=== PATIENT | male | born 1965 | race Caucasian/White ===

== ENCOUNTER 2021-03-20 16:10 | Emergency (ER) | payer BC, OTHER ==
[2021-03-20] MEDS ORDERED: Sodium Chloride 0.9% 10 ML Syringe FLUSH PRN (16:17)
[2021-03-20] MEDS ORDERED: Acetaminophen 500 MG Tab PO ONE (16:57)
[2021-03-20] MEDS ORDERED: Lactated Ringers 1,000 ML IV ONE ×2 (16:57→17:50)
[2021-03-20] MEDS ORDERED: cefTRIAXone 2 GM in Sodium Chloride 0.9% 100 ML IV ONE (16:59)
[2021-03-20 17:26] LABS: CHLORIDE,CL 100 mmol/L (98-107); SODIUM,NA 135 mmol/L (136-145)
[2021-03-20 17:36] LABS: ANION GAP 15.2 meq/L (7-15)
[2021-03-20] MEDS ORDERED: Ciprofloxacin in D5W 400 MG in Premix Bag 1 BAG IV ONE ×2 (17:50)
--- NOTE | 2021-03-20 19:17 | EDM.PDOC ---
ED HPI GENERAL MEDICAL PROBLEM - General Chief Complaint: Fever Stated Complaint: high blood pressure, fever Time Seen by Provider: 03/20/21 16:50 Source of Information: Reports: Patient History Limitations: Reports: No Limitations - History of Present Illness INITIAL COMMENTS - FREE TEXT/NARRATIVE: Patient comes emergency department today with a rather sudden onset of fever ch ills and body aches. This patient who has a history of diabetes hypertension and high cholesterol. Over the past 2 to 3 months he has noticed that has been very difficult for him to urinate. Very difficult for him to start his stream and he does not feel like he is emptying his bladder. This has been going on since he had a surgery in his back about 2 to 3 months ago. He is even had times of urge incontinence. He is also noted some haziness or cloudiness to his urine the past couple of weeks. He is urinating quite frequently with dysuria. No flank pain. Just prior to arrival he suddenly just felt malaise fatigue body aches fever and chills. He is Covid vaccinated. He has no chest pain no shortness of breath or difficulty breathing. He denies any abdominal pain. No nausea no vomiting. He is fatigued. No black or tarry stools or diarrhea. Other Treatments DIRECTOR OF RESOURCE DEVELOPMENT: NONE - Related Data Allergies Allergy/AdvReac Type Severity Reaction Status Date / Time adhesive tape Allergy unknown Verified 03/20/21 17:44 amlodipine Allergy unknown Verified 03/20/21 17:42 vancomycin Allergy unknown Verified 03/20/21 17:44 Home Meds: Home Meds Ciprofloxacin HCl [Cipro] 500 mg PO BID #56 tablet 03/20/21 [Rx] Cyanocobalamin (Vitamin B-12) [Vitamin B-12] 1,000 mcg PO DAILY 03/20/21 [Hi story] Empagliflozin [Jardiance] 25 mg PO DAILY 03/20/21 [History] Insulin Aspart [Insulin Aspart Flexpen] 100 unit SQ TIDMEALS 03/20/21 [History] Insulin Glulisine [Apidra Solostar] 100 unit SQ BID 03/20/21 [History] Levothyroxine 75 mcg PO ACBREAKFAST 03/20/21 [History] Lidocaine 5% [Lidoderm 5%] 1 patch DAILY 03/20/21 [History] Losartan [Cozaar] 50 mg PO BEDTIME 03/20/21 [History] Metoprolol Tartrate 50 mg PO BID 03/20/21 [History] Pregabalin 50 mg PO TID 03/20/21 [History] Sertraline HCl 100 mg PO DAILY 03/20/21 [History] Tamsulosin HCl [Flomax] 0.4 mg PO BEDTIME #30 capsule 03/20/21 [Rx] atorvaSTATin Calcium [Atorvastatin Calcium] 20 mg PO BEDTIME 03/20/21 [History] metFORMIN HCl [Metformin HCl] 500 mg PO BID 03/20/21 [History] ED ROS GENERAL - Review of Systems Review Of Systems: Comprehensive ROS is negative, except as noted in HPI. ED EXAM, SEPSIS - Physical Exam Exam: See Below Exam Limited By: No Limitations General Appearance: Alert, WD/WN, Moderate Distress (Appears mildly ill, diaphoretic fatigued.) Eye Exam: Bilateral Eye: EOMI Ears: Normal External Exam, Normal TMs Nose: Normal Inspection, Normal Mucosa Throat/Mouth: Normal Lips, Normal Oropharynx, Normal Voice. No: Normal Inspection (Except for overtly dry) Head: Atraumatic, Normocephalic Neck: Normal Inspection, Supple, Non-Tender, Full Range of Motion Respiratory/Chest: No Respiratory Distress, Lungs Clear, Normal Breath Sounds, No Accessory Muscle Use, Chest Non-Tender Cardiovascular: Normal Peripheral Pulses, Regular Rate, Rhythm, Tachycardia Peripheral Pulses: 1+: Radial (L), Radial (R) GI/Abdominal Exam: Normal Bowel Sounds, Soft, Non-Tender (Male) Exam: No: Hernia, Scrotum Tenderness (L), Scrotum Tenderness (R), Suprapubic Fullness, Testicular Mass, Testicular Tenderness (L), Testicular Tenderness (R) Rectal (Males) Exam: Other (He has a moderately large boggy quite tender prostate with loss of central sulcus no nodules) Back: Normal Inspection, Full Range of Motion Extremities: Normal Inspection, Normal Capillary Refill, Increased Warmth Neurological: Alert, Oriented, Normal Cognition, Normal Gait, No Motor/Sensory Deficits Psychiatric: Normal Affect, Normal Mood Skin: Intact, No Rash, Diaphoretic, Increased Warmth Course - Vital Signs Last Recorded V/S: Last Vital Signs Temp 100.4 F 03/20/21 17:37 Pulse 69 03/20/21 17:00 Resp 20 03/20/21 17:00 BP 123/50 L 03/20/21 17:00 Pulse Ox 96 03/20/21 17:00 - Orders/Labs/Meds Orders: Active Orders 24 hr Category Date Time Status Peripheral IV Care [RC] . DIRECTED Care 03/20/21 16:17 Active Chest 2V [CR] Urgent Exams 03/20/21 16:17 Taken CULTURE BLOOD [BC] Stat Lab 03/20/21 16:50 Received CULTURE BLOOD [BC] Stat Lab 03/20/21 16:50 Received CULTURE URINE [RM] Stat Lab 03/20/21 16:50 Received Sodium Chloride 0.9% [Saline Flush] Med 03/20/21 16:17 Active 10 ml FLUSH ASDIRECTED PRN Blood Culture x2 Reflex Set [OM.PC] Stat Oth 03/20/21 16:17 Ordered Peripheral IV Insertion Adult [OM.PC] Stat Oth 03/20/21 16:17 Ordered Post Void Residual [OM.PC] Routine Oth 03/20/21 18:16 Ordered Medication Orders Sodium Chloride (Sodium Chloride 0.9% 10 Ml Syringe) 10 ml FLUSH ASDIRECTED PRN PRN Reason: Keep Vein Open Labs: Laboratory Tests 03/20/21 03/20/21 03/20/21 Range/Units 16:50 16:50 16:50 WBC 13.1 H (4.0-10.2) K/uL RBC 5.58 H (4.33-5.41) M/uL Hgb 16.5 (13.1-16.8) g/dL Hct 47.2 (39.0-49.0) % MCV 84.6 (84.0-98.0) fL MCH 29.6 (28.2-33.3) pg MCHC 35.0 (31.7-36.0) g/dL RDW 13.7 (11.2-14.1) % Plt Count 180 (150-350) K/uL Neut % (Auto) 89.2 H (45.0-80.0) % Lymph % (Auto) 5.5 L (10.0-50.0) % Greer % (Auto) 4.7 (2.0-14.0) % Eos % (Auto) 0.3 (0.0-5.0) % Baso % (Auto) 0.3 (0.0-2.0) % Neut # (Auto) 11.70 H (1.40-7.00) K/uL Lymph # (Auto) 0.72 (0.50-3.50) K/uL Greer # (Auto) 0.61 (0.00-1.00) K/uL Eos # (Auto) 0.04 (0.00-0.50) K/uL Baso # (Auto) 0.04 (0.00-0.20) K/uL Sodium 135 L (136-145) mmol/L Potassium 4.0 (3.5-5.1) mmol/L Chloride 100 (98-107) mmol/L Carbon Dioxide 23.8 (21.0-32.0) mmol/L Anion Gap 15.2 H (7-15) meq/L BUN 20 H (7-18) mg/dL Creatinine 1.39 H (0.51-1.17) mg/dL Est Cr Clr Drug Dosing TNP Estimated GFR (MDRD) 53 mL/min Glucose 177 H (70-99) mg/dL Lactic Acid (0.4-2.0) mmol/L Calcium 9.0 (8.5-10.1) mg/dL Total Bilirubin 1.6 H (0.2-1.0) mg/dL AST 44 H (15-37) U/L ALT 34 (12-78) U/L Alkaline Phosphatase 97 (46-116) IU/L C-Reactive Protein 10.3 H (<=0.9) mg/dL Total Protein 8.0 (6.4-8.2) g/dL Albumin 3.6 (3.4-5.0) g/dL Prostate Specific Ag (0.13-4.0) ng/ml Specimen Type Urinvoid Urine Color Yellow Urine Appearance Slightly cloudy Urine pH 5.5 (5.0-9.0) Ur Specific [place] 1.015 (1.005-1.030) Urine Protein 100 H (NEGATIVE) mg/dL Urine Glucose (UA) >=1000 H (NEGATIVE) mg/dL Urine Ketones Trace H (NEGATIVE) mg/dL Urine Occult Blood Moderate H (NEGATIVE) Urine Nitrite Negative (NEGATIVE) Urine Bilirubin Negative (NEGATIVE) Urine Urobilinogen 1.0 (0.2-1.0) E.U./dL Ur Leukocyte Esterase Trace H (NEGATIVE) Urine RBC 5-10 H /HPF Urine WBC >100 H /HPF Ur Epithelial Cells Few /LPF Urine Bacteria Few (NONE TO FEW) /HPF SARS-CoV-2 Ag (Rapid) (NEGATIVE) 03/20/21 03/20/21 03/20/21 Range/Units 16:50 16:50 17:22 WBC (4.0-10.2) K/uL RBC (4.33-5.41) M/uL Hgb (13.1-16.8) g/dL Hct (39.0-49.0) % MCV (84.0-98.0) fL MCH (28.2-33.3) pg MCHC (31.7-36.0) g/dL RDW (11.2-14.1) % Plt Count (150-350) K/uL Neut % (Auto) (45.0-80.0) % Lymph % (Auto) (10.0-50.0) % Greer % (Auto) (2.0-14.0) % Eos % (Auto) (0.0-5.0) % Baso % (Auto) (0.0-2.0) % Neut # (Auto) (1.40-7.00) K/uL Lymph # (Auto) (0.50-3.50) K/uL Greer # (Auto) (0.00-1.00) K/uL Eos # (Auto) (0.00-0.50) K/uL Baso # (Auto) (0.00-0.20) K/uL Sodium (136-145) mmol/L Potassium (3.5-5.1) mmol/L Chloride (98-107) mmol/L Carbon Dioxide (21.0-32.0) mmol/L Anion Gap (7-15) meq/L BUN (7-18) mg/dL Creatinine (0.51-1.17) mg/dL Est Cr Clr Drug Dosing Estimated GFR (MDRD) mL/min Glucose (70-99) mg/dL Lactic Acid 2.2 H (0.4-2.0) mmol/L Calcium (8.5-10.1) mg/dL Total Bilirubin (0.2-1.0) mg/dL AST (15-37) U/L ALT (12-78) U/L Alkaline Phosphatase (46-116) IU/L C-Reactive Protein (<=0.9) mg/dL Total Protein (6.4-8.2) g/dL Albumin (3.4-5.0) g/dL Prostate Specific Ag 1.33 (0.13-4.0) ng/ml Specimen Type Urine Color Urine Appearance Urine pH (5.0-9.0) Ur Specific [place] (1.005-1.030) Urine Protein (NEGATIVE) mg/dL Urine Glucose (UA) (NEGATIVE) mg/dL Urine Ketones (NEGATIVE) mg/dL Urine Occult Blood (NEGATIVE) Urine Nitrite (NEGATIVE) Urine Bilirubin (NEGATIVE) Urine Urobilinogen (0.2-1.0) E.U./dL Ur Leukocyte Esterase (NEGATIVE) Urine RBC /HPF Urine WBC /HPF Ur Epithelial Cells /LPF Urine Bacteria (NONE TO FEW) /HPF SARS-CoV-2 Ag (Rapid) Negative (NEGATIVE) Meds: Medications Generic Name Dose Route Start Last Admin Trade Name Freq PRN Reason Stop Dose Admin Sodium Chloride 10 ml 03/20/21 16:17 Sodium Chloride 0.9% 10 Ml Syringe FLUSH ASDIRECTED PRN Keep Vein Open Discontinued Medications Generic Name Dose Route Start Last Admin Trade Name Freq PRN Reason Stop Dose Admin Acetaminophen 1,000 mg 03/20/21 16:57 03/20/21 17:07 Acetaminophen 500 Mg Tab PO 03/20/21 16:58 1,000 mg ONETIME ONE Administration Lactated Ringer's 1,000 mls @ 1,000 mls/hr 03/20/21 16:57 03/20/21 17:07 Ringers, Lactated IV 03/20/21 17:56 1,000 mls/hr .BOLUS ONE Administration Ceftriaxone Sodium 2 gm/ 100 mls @ 200 mls/hr 03/20/21 16:59 03/20/21 17:39 Sodium Chloride IV 03/20/21 17:28 200 mls/hr ONETIME ONE Administration Lactated Ringer's 1,000 mls @ 1,000 mls/hr 03/20/21 17:50 Ringers, Lactated IV 03/20/21 18:49 .BOLUS ONE Ciprofloxacin/Dextrose 400 mg/ 200 mls @ 200 mls/hr 03/20/21 17:50 03/20/21 18:20 Premix IV 03/20/21 18:49 200 mls/hr ONETIME ONE Administration - Radiology Interpretation Free Text/Narrative:: Chest x-ray per radiology no active infiltrate or effusion was identified. No acute process. - Re-Assessments/Exams Free Text/Narrative Re-Assessment/Exam: IV was established. Labs are drawn to include blood cultures x2. His Covid is negative. LR 1 L wide open 1 g Tylenol p.o. 2 g of Rocephin for concerns of bacteremia and sepsis. Laboratory evaluation with a mild elevated of his white blood cell count of 13.1. Sodium 135, creatinine 1.39 unknown baseline BUN at 20., Glucose 117, mild elevation of his T bili at 1.6 AST at 44. Lactic acid mildly elevated at 2.2. Procalcitonin pending. CRP 10.3. Urinalysis is grossly infected with greater than thousand glucose trace ketones greater than 100 you WBCs. 5-10 U RBCs. Urine culture is pending. With the concerns of his difficulty with urination as well as his large boggy prostate I have concerns for prostatitis. He was also given 400 mg of Cipro IV piggyback. His PSA is normal at 1.33. Second liter of LR wide open. The patient really looks quite a bit better after the above therapy. He is much more alert he does not appear as malaise and fatigue as he once did. His fever has broke. He is not tachycardic. He has energy to get up and move. He has urinated multiple times in the emergency department. We did attempt pre and post void evaluation although this is inconsistent with urinary retention and we had difficulty scanning his bladder. STI testing is pending. There is multiple factors and I am concerned about here. The patient clearly has a urinary tract infection but I think that this could be caused from urinary stasis due to his enlarged prostate and inability to empty his bladder. He also has a quite large boggy tender prostate concerning for prostatitis. His PSA is normal. Patient does feel quite a bit better after the above therapy and he would like to go home. I would really like to keep him in the hospital overnight just to make sure that he is improving especially with his acute kidney injury although is resistant to this. I think that this is okay at this time as he has clinically improved in the emergency department and feels quite a bit better. He is covered with 2 g of Rocephin as well as ciprofloxacin which we will place on him for 28 days for concerning a prostatitis. We will also start him on Flomax to help with his urinary symptoms as well. He needs close follow-up in the clinic most likely Tuesday or Tuesday of next week if at all worse over the weekend he needs to return and we will hospitalize him at that time. Especially if he has uncontrolled fever he is unable to keep his medications down nausea or vomiting. Discharge directions as below are explained to the patient he was comfortable with this plan and his questions are answered. Departure - Departure Time of Disposition: 19:43 Disposition: Home, Self-Care 01 Clinical Impression: Prostatitis, acute, Difficulty urinating, JESSE (acute kidney injury) Sepsis Qualifiers: Sepsis type: sepsis due to unspecified organism Sepsis acute organ dysfunction status: with acute organ dysfunction Severe sepsis acute organ dysfunction type: acute renal failure Acute renal failure type: unspecified Severe sepsis shock status: without septic shock Qualified Code(s): A41.9 - Sepsis, unspecified organism - Discharge Information Prescriptions: Ciprofloxacin HCl [Cipro] 500 mg PO BID #56 tablet Tamsulosin HCl [Flomax] 0.4 mg PO BEDTIME #30 capsule Instructions: Antibiotic Medicine, Adult, [id number], Benign Prostatic Hyperplasia, Prostatitis, [id number], Fever, Adult, [id number] Referrals: PCP,Not In Area [Primary Care Provider] - Forms: ED Department Discharge Additional Instructions: Tylenol as needed for pain fever discomfort. May use Ibuprofen although use very sparingly to protect your kidney. Drink plenty of fluids. Really need to be urinating every 2 hours if youre not urinating that much you are not drinking enough fluids. Small frequent meals. Rest the next few days. Watch your blood sugars 2-3 times a day for the next few days and correct as needed. Start Flomax, 1 capsule at bedtime to help with difficulty with urination. RX to [facility]. Cipro 400mg, 1 tablet twice daily for a total of 28 days. DO NOT STOP PRIOR if symptoms resolve must be taken for 28 days. Unless told my health care provider. Make sure and eat yogurt with live cultures 2-3 times a day as well take OTC pro-biotics to prevent side effects of diarrhea from the Cipro. Speak with the pharmacist for the pro-biotics. Return to the ED if new or worsening symptoms. Especially fever not controlled with above. Unable to keep fluids down or decreased urinary output especially. Follow up with PCP tuesday or middle of the week next week for recheck. Your PSA was normal today. STI testing which is standard in this setting is pending. Sepsis Event Note (ED) - Focused Exam Vital Signs: Vital Signs Temp Temp Pulse Resp BP Pulse Ox 03/20/21 17:37 100.4 F 03/20/21 17:07 102.9 F H 03/20/21 17:00 100.4 F 69 20 123/50 L 96 03/20/21 16:20 102 F H 80 20 178/52 H 95 03/20/21 16:10 102.9 F H 93 20 197/85 H 92 L - My Orders Last 24 Hours: My Active Orders 03/20/21 16:17 Peripheral IV Care [RC] . DIRECTED Chest 2V [CR] Urgent Sodium Chloride 0.9% [Saline Flush] 10 ml FLUSH ASDIRECTED PRN Blood Culture x2 Reflex Set [OM.PC] Stat Peripheral IV Insertion Adult [OM.PC] Stat 03/20/21 16:50 CULTURE BLOOD [BC] Stat CULTURE BLOOD [BC] Stat CULTURE URINE [RM] Stat 03/20/21 18:16 Post Void Residual [OM.PC] Routine - Assessment/Plan Last 24 Hours: My Active Orders 03/20/21 16:17 Peripheral IV Care [RC] . DIRECTED Chest 2V [CR] Urgent Sodium Chloride 0.9% [Saline Flush] 10 ml FLUSH ASDIRECTED PRN Blood Culture x2 Reflex Set [OM.PC] Stat Peripheral IV Insertion Adult [OM.PC] Stat 03/20/21 16:50 CULTURE BLOOD [BC] Stat CULTURE BLOOD [BC] Stat CULTURE URINE [RM] Stat 03/20/21 18:16 Post Void Residual [OM.PC] Routine
== END 2021-03-20 21:05 | disposition home or self-care (01) ==
LOC: LL.ED 16:10
DX: A41.9 Sepsis, unspecified organism (principal); R65.20 Severe sepsis without septic shock; N17.9 Acute kidney failure, unspecified; N41.0 Acute prostatitis; R39.198 Other difficulties with micturition; E11.9 Type 2 diabetes mellitus without complications; I10 Essential (primary) hypertension; E78.00 Pure hypercholesterolemia, unspecified; R74.02 Elevation of levels of lactic acid dehydrogenase [LDH]; Z91.048 Other nonmedicinal substance allergy status; Z88.1 Allergy status to other antibiotic agents; Z88.8 Allergy status to other drugs, medicaments and biological substances; Z79.4 Long term (current) use of insulin; Z79.899 Other long term (current) drug therapy; Z20.822 Contact with and (suspected) exposure to COVID-19
CPT/HCPCS: 36415; 71046; 80053; 81001; 83605; 84153; 85025; 86140; 87040; 87086; 87426; 96365; 96375; 99283; A9270; J0696; J0744; J7120; 87077